=== PATIENT | female | born 1960 | race Caucasian/White ===

== ENCOUNTER 2022-01-24 09:34 | Outpatient (REF) | payer OTHER, SELFPAY ==
--- NOTE | ~2022-01-24 | XR_ITS ---
EXAMINATION: XR CERVICAL SPINE CLINICAL INFORMATION: M47.812 - Spondylosis without myelopathy or radiculopathy, cervical region COMPARISON: None TECHNIQUE: Cervical spine is imaged in 6 views. FINDINGS: Vertebral bodies are normal in height and there is no vertebral compression or destructive process or prevertebral soft tissue swelling. No focal disc narrowing or erosive change. No cervical rib. There are multilevel degenerative facet changes with facet joint narrowing and spurring. There is multilevel vertebral body spurring. Borderline 1 mm spondylolisthesis C5-C6. Oblique views show variable bilateral foraminal spurring C3-C5. XR/XR cervical spine min 6V IMPRESSION: 1. Multilevel degenerative facet changes with facet joint narrowing and spurring. 2. Variable bilateral foraminal spurring C3-C5. 3. Borderline spondylolisthesis C5-C6.
== END 2022-01-24 09:35 | disposition home or self-care (01) ==
LOC: HO.XRAY 09:34
PROVIDERS: PCP Internal Medicine; Visit Provider Nurse Practitioner Family
DX: M25.511 Pain in right shoulder (principal); M54.12 Radiculopathy, cervical region; M47.812 Spondylosis without myelopathy or radiculopathy, cervical region; Z87.828 Personal history of other (healed) physical injury and trauma
CPT/HCPCS: 72052; 99202

== ENCOUNTER 2022-03-21 05:50 | Outpatient (REF) | payer OTHER, SELFPAY ==
--- NOTE | ~2022-03-21 | FL_ITS ---
EXAMINATION: XR FLUOROSCOPY WITH IMAGES CLINICAL INFORMATION: M25.511 - Pain in right shoulder COMPARISON: None. TECHNIQUE: Fluoroscopy Supervised By: Dr. Royer Phelps. Fluoroscopy Time: 0.3 minutes. Cumulative Dose: 4.00 mGy. DAP: 1.09 Gycm2. Images: 2. FINDINGS: There is a spinal needle overlying the upper scapular just above the mid scapular spine with contrast horizontally oriented in the soft tissues. The other image shows spinal needle near surgical neck humerus with contrast in the soft tissues. No visible vascular communication. FL/FL guidance in treatment room IMPRESSION: Fluoroscopy for pain management procedures.
== END 2022-03-21 05:51 | disposition home or self-care (01) ==
LOC: CF 05:50
PROVIDERS: Visit Provider Anesthesiology
DX: M47.812 Spondylosis without myelopathy or radiculopathy, cervical region (principal); M54.12 Radiculopathy, cervical region; M25.511 Pain in right shoulder; Z87.828 Personal history of other (healed) physical injury and trauma
CPT/HCPCS: 64417; 64418; 77002; J2795

== ENCOUNTER → 2022-03-24 14:15 | Outpatient (BNVA) | payer OTHER, SELFPAY | PROVIDERS: PCP Internal Medicine; Visit Provider Nurse Practitioner Family | DX: M25.511 Pain in right shoulder (principal); M47.812 Spondylosis without myelopathy or radiculopathy, cervical region; Z98.890 Other specified postprocedural states | CPT/HCPCS: 99212 ==

== ENCOUNTER 2022-05-08 08:08 | Outpatient (REF) | payer OTHER, SELFPAY ==
--- NOTE | ~2022-05-08 | XR_ITS ---
EXAMINATION: XR SHOULDER, RIGHT CLINICAL INFORMATION: M25.511 - Pain in right shoulder COMPARISON: None TECHNIQUE: Right shoulder is imaged in 4 views. FINDINGS: No fracture or dislocation or destructive process. The glenohumeral joint appears normal. The acromioclavicular alignment is normal. There is a punctate calcification in region of distal superior rotator cuff as well as mild spurring greater tuberosity. XR/XR shoulder RT min 2V IMPRESSION: Punctate calcification in region of distal superior rotator cuff. Mild spurring greater tuberosity.
== END 2022-05-08 08:09 | disposition home or self-care (01) ==
LOC: HO.XRAY 08:08
PROVIDERS: PCP Internal Medicine; Visit Provider Nurse Practitioner Family
DX: M25.511 Pain in right shoulder (principal)
CPT/HCPCS: 73030; 99212

== ENCOUNTER 2022-12-08 13:16 | Outpatient (AMB) | payer OTHER, SELFPAY ==
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
[2022-12-08 13:24] VITALS: BP 138/72; PULSE 76; O2SAT 98; BMI 31.0
== END 2022-12-08 13:30 | disposition home or self-care (01) ==
PROVIDERS: PCP Internal Medicine; Visit Provider Nurse Practitioner Family
DX: M25.511 Pain in right shoulder (principal); M47.812 Spondylosis without myelopathy or radiculopathy, cervical region; M62.838 Other muscle spasm
CPT/HCPCS: 99214

== ENCOUNTER → 2022-12-08 13:16 | Outpatient (BNVA) | payer OTHER, SELFPAY | PROVIDERS: PCP Internal Medicine; Visit Provider Nurse Practitioner Family | DX: M25.511 Pain in right shoulder (principal); M47.812 Spondylosis without myelopathy or radiculopathy, cervical region; M62.838 Other muscle spasm | CPT/HCPCS: 99212 ==

== ENCOUNTER 2023-01-08 08:29 | Outpatient (AMB) | payer OTHER, SELFPAY ==
[2023-01-08 09:27] VITALS: BP 136/85; PULSE 78; RESP 12; BMI 30.8
--- NOTE | 2023-01-08 09:27 | MHC.OFFVIS ---
Intake Vital Signs 01/08/23 09:27 Height 5 ft 3 in Weight 174 lb BMI 30.8 BP 136/85 Blood Pressure Location Lt brachial Position Sitting Respiration 12 Pulse 78 Pulse Source Pulse Oximeter Intake Visit Reasons: R Dx suprascap/axillary/pectoral NB /Lvm Allergies No Known Allergies Allergy (Verified 12/08/22 13:25) HPI R Dx suprascap/axillary/pectoral NB /Lvm HPI Details 62-year-old female who presents today for a right diagnostic suprascapular, axillary nerve blocks. A certified service consultant was present during the visit. Denies any recent cough, cold, infection, fever or other significant changes in medical history since last office visit. [facility] Medical History DJD (degenerative joint disease) of knee Vitamin D deficiency Glaucoma Lung nodule Thyroid nodule Hematochezia Hyperlipidemia Hypertension H/O esophageal reflux Constipation Social History Patient Tobacco Use Status: Never used Tobacco Review of Systems Const All systems reviewed & are unremarkable except as noted in HPI and below Physical Exam Vital Signs: Last Vital Signs Pulse 78 01/08/23 09:27 Resp 12 01/08/23 09:27 BP 136/85 01/08/23 09:27 BMI result Body Mass Index 30.8 General: Appears afebrile. Alert and oriented. Mood and affect appropriate. Follows and participates in conversation appropriately. Respiratory effort is unlabored. Able to transition from sit to stand unassisted. Ambulates with bilaterally normal heel strike and toe off. Office Procedures Nerve Block Details: Right diagnostic suprascapular and axillary nerve blocks, US guided. After obtaining written consent, pre-procedure blood pressure and heart rate were stable and recorded in the nursing record. The patient was placed in the sitting position. The areas overlying the peripheral nerves were widely prepped with chloraprep, allowed to dry and sterilely draped. Using ultrasound, the appropriate landmarks were identified. An 80 mm 21 gauge echostim needle was advanced under ultrasound guidance to the suprascapular notch for the suprascapular nerve and then the quadrangular space for the axillary nerve. Aspiration was negative for heme and synovial fluid. 2 cc of bupivacaine 0.5% was injected around each targeted nerve. The needles were removed, skin cleansed and sterile bandage was applied. The patient tolerated the procedure well and no complications were encountered. Following the procedure, the patient's vital signs were stable. The patient was discharged home in good condition with post-procedural instructions. Time Out: Immediately prior to the procedure, the following was verbally confirmed that there is a signed consent form and that the correct patient, planned procedure, site and side are consistent with documentation and that necessary equipment and/or blood products are available prior to the start of the case. Complications: none EBL: <5 cc Note: An ultrasound image of the injection was taken and stored in the permanent record. 70478 - Axillary 24634 - Suprascapular Procedure code (CPT) selection complete Results Reviewed Results Reviewed: No imaging is available for review. Assessment & Plan Assessment & Plan (1) Right shoulder pain: Code(s): M25.511 - Pain in right shoulder Plan Patient is status post right diagnostic suprascapular and axillary nerve blocks, ultrasound guided. Patient tolerated procedure well and was discharged home in stable condition with discharge instructions. All questions were answered. We will follow-up in two weeks via telephone or in clinic to assess response to therapy. A follow-up appointment was made during today's visit. Scribed for Dr. Lim by Phillip Taylor, medical officer, on 01/08/2023. I, Dr. Lim, have personally reviewed and agree with the information entered by the scribe. Coding Level of Care Code Procedure Only Diagnoses Right shoulder pain M25.511 CPT Codes Nerve Block - Nerve Block 3: 90367 - Axillary ([id number]) Nerve Block - Nerve Block 4: 16908 - Suprascapular ([id number])
== END 2023-01-08 09:39 | disposition home or self-care (01) ==
PROVIDERS: PCP Internal Medicine; Visit Provider Internal Medicine
DX: M25.511 Pain in right shoulder (principal)
CPT/HCPCS: 64417; 64418; 76942

== ENCOUNTER → 2023-01-08 08:29 | Outpatient (BNVA) | payer OTHER, SELFPAY | PROVIDERS: PCP Internal Medicine; Visit Provider Internal Medicine | DX: M25.511 Pain in right shoulder (principal) | CPT/HCPCS: 64417; 64418 ==

== ENCOUNTER 2023-01-11 13:20 | Outpatient (AMB) | payer OTHER, SELFPAY ==
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
[2023-01-11 13:33] VITALS: BP 132/71; PULSE 71; O2SAT 98; BMI 30.3
== END 2023-01-11 13:45 | disposition home or self-care (01) ==
PROVIDERS: PCP Internal Medicine; Visit Provider Nurse Practitioner Family
DX: M25.511 Pain in right shoulder (principal); M19.011 Primary osteoarthritis, right shoulder; M62.838 Other muscle spasm
CPT/HCPCS: 99213

== ENCOUNTER → 2023-01-11 13:20 | Outpatient (BNVA) | payer OTHER, SELFPAY | PROVIDERS: PCP Internal Medicine; Visit Provider Nurse Practitioner Family | DX: M25.511 Pain in right shoulder (principal); M19.011 Primary osteoarthritis, right shoulder; M62.838 Other muscle spasm | CPT/HCPCS: 99212 ==

== ENCOUNTER → 2024-06-19 09:05 | Outpatient (REF) | payer OTHER, SELFPAY ==
--- NOTE | ~2024-06-19 | NM_ITS ---
CLINICAL HISTORY: THYROTOXICOSIS Thyroid scintigraphy Comparison: None Findings: 0.288 mCi of I-123 was administered 9:30 a.m. on 06/19/24. 10 mCi Tc-99m pertechnetate was administered 11:22 a.m. on 06/20/24. At 4 hours radiotracer uptake was 11.68%, which is within normal limits (6-18%). At 24 hours radiotracer uptake was 31.21%, which is within normal limits (10-35%). Uptake on the I-123 scan is heterogeneous and greater on the left. Uptake on the Tc-99m pertechnetate scan was also heterogeneous with a similar pattern; greater uptake on the left in the mid to upper pole of the thyroid. There is also focal uptake in the right lobe of the thyroid at the lower pole which is better seen on the Tc-99m pertechnetate scan. Note is made of elevated free T4 (1.21 ng/mL) and slightly decreased TSH (0.29 miu/mL) which was drawn on 05/01/24. Impression: Heterogeneous radiotracer uptake. Clinical history of thyrotoxicosis with reported abnormal blood work, weight loss and fatigue. % Uptake is within normal limits. Heterogeneous uptake could be secondary to functional status of thyroid nodules; thyroid nodules can be further evaluated with a thyroid ultrasound. Toxic multinodular goiter may also be considered, however is less likely due to uptake of radiotracer being within normal limits. This document has been electronically signed by: Irene Kc MD on 06/23/2024 17:37:40
--- OUTSIDE RECORDS SUMMARY | 2024-06-19 09:39 | XMS_ITS | Encounter Summary ---
Author Organization [employer] Address [address] [place] [address] Care Team Providers Care Certified Technician Name Role Phone Unavailable Primary Care Provider Unavailabl e Encounter Details Date Type Department Care Team (Latest Contact Info) Description 07/15/2018 Abstract [facility] Dental, Provider, DDS Social History Tobacco Use Types Packs/Day Years Used Date Smoking Tobacco: Never Assessed Comments Unknown Sex and Gender Information Value Date Recorded Sex Assigned at Female 01/09/2022 10:20 AM EDT Legal Sex Female 10:20 AM EDT Gender Identity Female 01/09/2022 10:20 AM EDT Sexual Orientation Straight 01/09/2022 10 :20 AM EDT documented as of this encounter Plan of Treatment Upcoming Encounters Date Type Department Care Team (Late st Contact Info) Description 11/24/2024 8:00 AM EDT Office Visit [facility] [address] [place] [address] Jeffry Stanton documented as of this encounter Visit Diagnoses Not on filedocumented in this encounter
--- OUTSIDE RECORDS SUMMARY | 2024-06-19 09:39 | XMS_ITS | Encounter Summary ---
Author Organization [facility] Address [address] [place] [address] Care Team Providers Care Courseware Developer Name Role Phone Nan Rubio MD Primary Care Provider [phone] Reason for Visit * Reason Onset Date Comments test 05/30/2024 Encounter Details Date Type Department Care Team ([facility] Contact Info) Description 05/30/2024 Telephone [facility] [address] [place], [place] [phone] Malgorzata Singleton PA [address] [place], [place] test Social History Tobacco Use Types Packs/Day Years Used Date Smoking Tobacco: Never Smokeless Tobacco: Never Alcohol Use Standard Drinks/Week Comments No 0 (1 standard drink = 0.6 oz pur e alcohol) Comments No Sex and Gender Information Value Date Recorded Sex Assigned at Female 02/06/2024 10:56 AM EST Legal Sex Female 4:36 AM EST Gender Identity Female 02/06/2024 10:56 AM EST Sexual Orientation Straight 02/06/2024 10 :56 AM EST Occupation Industry Job Start Date Job End Date [employer] WORK[employer] Not on file Not on file Not on file documented as of this encounter Progress Notes * Sally Lawson RN - 06/02/2024 2:44 PM EDT Called and spoke with patient Message from provider read Pt verbalizes understanding Uptake scan scheduled for 06/19/24 * NICKI Gerard - 06/02/2024 11:11 AM EDT Please have patient reach out to ordering provider/PCP regarding potential side effects. Dizziness is not a common side effect of Fosamax. I have seen patient in the past for hyperthyroidism. Please remind her to complete thyroid uptake scan later this week. I believe is scheduled at [facility] on the . * Sally Lawson RN - 06/02/2024 9:23 AM EDT Called and spoke with patient Pt sts after taking Fosamax, she is dizzy last 2-3 days then resolves. This has been occurring x 2 months Denies n/v Denies room spinning Denies headaches Denies CP/SOB Pt is still able to go to work Please advise * Talya Muniz MA - 06/02/2024 9:03 AM EDT Called pt, pt will do that. She then mentioned that you prescribed her a medication, she didn't remember the name but she states she feels dizziness since she doesn't really eat in the morning. She wants to know what she should do. I let her know I will send the message over to the nurse, since I wasn't sure if she could take that med in the PM after she eats so she wont feel dizzy? * NICKI Gerard - 05/30/2024 3:21 PM EDT Please have patient either drop off results to our office or have them faxed over. * She Atkinson - 05/30/2024 2:03 PM EDT Patient just wanted to make Malgorzata aware that patient will be having her thyroid test done on 06/05/24 at [facility] documented in this encounter Plan of Treatment Upcoming Encounters Date Type Department Care Team (Late st Contact Info) Description 08/25/2024 8:30 AM EDT Office Visit Gastroenterology - [place] [address] [place] [phone] Tatum Stacy PA [address] [place] [address] 11/20/2024 9:30 AM EDT Office Visit Internal Medicine - [place] [address] [place] [phone] Nan Rubio MD [address] [place] [phone] documented as of this encounter Visit Diagnoses Not on filedocumented in this encounter Care Teams Courseware Developer Relationship Specialty Start Date End Date Nan Rubio MD [address] [place] [phone] PCP - General Internal Medicine 10/06/14 documented as of this encounter
--- OUTSIDE RECORDS SUMMARY | 2024-06-19 09:39 | XMS_ITS | Encounter Summary ---
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
--- OUTSIDE RECORDS SUMMARY | 2024-06-19 09:39 | XMS_ITS | Clinical Summary ---
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 3 Active lidocaine (LIDODERM) 5 % patch Place 1 Patch onto the skin every 24 hours. Apply for no more than 12 hours in any 24 hour period. 3 Active EPINEPHrine (EpiPen 2-Acosta) 0.3 mg/0.3 mL injection Inject 0.3 mg mL into the skin once as needed for Other (allergic reaction) for up to 1 dose. 1 Active valACYclovir (VALTREX) 1 gram tablet 4 Active calcium carbonate-vitam in D3 600 mg-10 mcg (400 unit) capsule Take 1 capsule by mouth 2 (two) times a day. 180 each 2 4 Active alendronate (Fosamax) 70 mg tablet Take 1 tablet (70 mg total) by mouth every 7 (seven) days. Take in the morning with a full glass of water, on an empty stomach, and do not take anything else by mouth or lie down for the next 30 min. 12 each 3 4 02/14/20 25 Active bisacodyL (DULCOLAX) 5 mg EC tablet Take 1 tablet (5 mg total) by mouth 2 (two) times a day if needed for constipation. 60 tablet 3 5 Active ketoconazole (NIZORAL) 2 % cream 5 Active lisinopril-hydr oCHLOROthiazide (PRINZIDE,ZESTO RETIC) 20-12.5 mg per tablet Take 1 tablet by mouth 1 (one) time each day. 90 tablet 3 5 Active atorvastatin (LIPITOR) 10 mg tablet Take 1 tablet (10 mg total) by mouth 1 (one) time each day. 90 tablet 3 5 Active omeprazole (PriLOSEC) [address] capsule Take 1 capsule (40 mg total) by mouth 1 (one) time each day. 30 capsule 1 5 Active linaCLOtide (Linzess) 145 mcg capsule Take 1 capsule (145 mcg total) by mouth 1 (one) time each day. 30 capsule 3 5 Active metoclopramide (REGLAN) 5 mg tablet Take 1 tablet (5 mg total) by mouth 3 (three) times a day before meals. 90 each 1 5 05/23/19 26 Active hydrocortisone (ANUSOL-HC) 2.5 % rectal cream Insert into the rectum 2 (two) times a day. 30 g 1 5 Active hydrocortisone (ANUSOL-HC) 2.5 % rectal cream Place 1 Inch rectally 2 times daily. 0 05/23/19 25 Discontinu ed(Reorder ) Active Problems Problem Noted Date Diagnosed Date Low TSH level 05/14/2024 Language barrier 02/01/2024 Pelvic relaxation 02/01/2024 Constipation 10/29/2017 Esophageal reflux 10/29/2017 Internal hemorrhoids with complication 8 Hypertension 04/10/2017 Vitamin B12 deficiency 04/10/2017 Hyperlipidemia 12/30/2016 Hematochezia 10/27/2016 Thyroid nodule 07/22/2015 Lung nodule 12/03/2014 Glaucoma 12/01/2014 Vitamin D deficiency 09/09/2014 Seasonal allergies 2013 DJD (degenerative joint disease) of knee 014 Breast asymmetry in female 06/23/2013 Encounters Date Type Department Care Team Description 06/19/2024 [facility] [place] [phone] Malgorzata Singleton PA Labs Only 05/30/2024 Telephone Endocrinology [address] [phone] Malgorzata Singleton PA test 05/22/2024 10:50 AM EDT Office Visit Gastroenterology [facility] [address] [phone] Tatum Stacy PA Chronic constipation (Primary Dx); Gastroesophageal reflux disease, unspecified whether esophagitis present; Gastroparesis 05/22/2024 Telephone Gastroenterology [address] [phone] Tatum Stacy PA PRIOR AUTHORIZATION 05/14/2024 8:30 AM EST Office Visit Internal Medicine - [address] [phone] Nan Rubio MD Mixed hyperlipidemia (Primary Dx); Primary hypertension; Low TSH level; Vitamin B12 deficiency 05/05/2024 Telephone Endocrinology - [address] [phone] Talya Muniz MA thyroid uptake not covered @[facility] 05/01/2024 8:40 AM EST Office Visit Endocrinology [address] [phone] Malgorzata Singleton PA Thyroid nodule (Primary Dx); Subclinical hyperthyroidism 04/07/2024 8:59 AM EST - 04/07/2024 11:59 PM EST Hospital Encounter Radiology Department - [address] [phone] Nontoxic single thyroid nodule Discharge Disposition: Home or Self Care 03/21/2024 2:38 PM EST - 03/21/2024 11:59 PM EST Hospital Encounter Radiology Department - [address] [phone] Encounter for screening mammogram for breast cancer Discharge Disposition: Home or Self Care 03/21/2024 Telephone Gastroenterology [facility] [address] [place] [phone] Tatum Stacy PA Refill Request from Last 3 Months Immunizations Name Administration Dates Next Due Influenza Quadravalent, MDCK , 0.5ml, preservative free (Flucelvax) 6mo and older 11/18/2018 Influenza trivalent, with pr eservative (Fluzone; Afluria) 6mo and older 12/12/2017 PPD Test 07/09/2018,04/12/2017,12/29/2014 Surgical History Surgery Date Site/Laterality Comments EYE SURGERY 2018 PROCEDURE: HISTORICAL EYE SURGERY; COMMENT: cataract OTHER SURGICAL HISTORY 03/12/2019 - 03/11/2020 hemorrhoidectomy Medical History Medical History Date Comments Breast asymmetry in female 06/23/2013 DX:Br east asymmetry in female Constipation 10/29/2017 DX:Constipation DJD (degenerative joint dise ase) of knee 10/21/2013 DX:DJD (degenerative joint d isease) of knee Esophageal reflux 10/29/2017 DX:Esophageal reflux Glaucoma 12/01/2014 DX:Glaucoma Hematochezia 10/27/2016 DX:Hematochezia Hyperlipidemia 12/30/2016 DX:Hyperlipidemi a Hypertension 04/10/2017 DX:Hypertension Internal hemorrhoids with complication 10/29/2017 DX:Internal hemorrhoids with complication Lung nodule 12/03/2014 DX:Lung nodule Seasonal allergies 2013 DX:Seasonal a llergies Thyroid nodule 07/22/2015 DX:Thyroid nodul e Vitamin B12 deficiency 04/10/2017 DX:Vitami n B12 deficiency Vitamin D deficiency 09/09/2014 DX:Vitamin D deficiency Weight loss, unintentional 11/23/2016 DX:We ight loss, unintentional Hemorrhoids Family History Medical History Relation Name Comments Dementia Father Diabetes Mother Hypertension Mother Breast cancer Neg Hx Ovarian cancer Neg Hx Relation Name Status Comments Brother 1 Alive Brother 2 Alive Brother 3 Alive Brother 4 Father Mother Sister 1 Alive Sister 2 Alive Sister 3 Alive Social History Tobacco Use Types Packs/Day Years Used Date Smoking Tobacco: Never Smokeless Tobacco: Never Tobacco Cessation:Counseling Given: Not Answered Alcohol Use Standard Drinks/Week Comments No 0 (1 standard drink = 0.6 oz pur e alcohol) Comments No Sex and Gender Information Value Date Recorded Sex Assigned at Female 02/06/2024 10:56 AM EST Legal Sex Female 4:36 AM EST Gender Identity Female 02/06/2024 10:56 AM EST Sexual Orientation Straight 02/06/2024 10 :56 AM EST 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 Not on file Not on file Obstetrics History Para Term AB IAB SAB Ectopic Multiple Livin g Live Births 6 6 3 3 3 Date Outcome GA Total Labor Labor/2nd/3rd Weight Sex Type Anes PTL Nkechi A1 A5 Name Clin Term Term Term 1982 Para M Vag-S pont Living 1983 Para F Vag-S pont Living 1985 Para F Vag-S pont Living Last Filed Vital Signs Vital Sign Reading Time Taken Comments Blood Pressure 104/64 05/22/2024 10:13 AM EDT Pulse 67 05/14/2024 8:48 AM EST Temperature 36.3 ??C (97.3 ??F) 05/14/2024 8:48 AM ES T Respiratory Rate - - Oxygen Saturation 98% 05/14/2024 8:48 AM EST Inhaled Oxygen Concentration - - Weight 73.9 kg (163 lb) 05/22/2024 10:13 AM EDT Height 160 cm (5' 3 ) 05/22/2024 10:13 AM EDT Body Mass Index 28.87 05/22/2024 10:13 AM EDT Plan of Treatment Upcoming Encounters Date Type Department Care Team (Late st Contact Info) Description 08/25/2024 8:30 AM EDT Office Visit Gastroenterology - [place] 175 [facility] [address] [facility] [address] [place] [phone] Tatum Stacy PA [address] [facility] [address] [place] [place] [phone] 11/20/2024 9:30 AM EDT Office Visit Internal Medicine - [place] [address] [facility] [address] [place] [phone] Nan Rubio MD 175 [facility] 200 [place] [phone] Health Maintenance Due Date Last Done Comments Pneumococcal Vaccine: 50+ Years (1 of 1 - PCV) 2010 Depression Screening 02/18/2022 HIV Screening 02/18/2022 Hepatitis C Screening 02/18/2022 Social Influencers of Health Screening 02/18/2022 COVID-19 Vaccine ( - season) 2023 03/16/2023, 01/25/2022, 01/06/2021, Additional history exists Hypertension/CHF/CAD Annual BMP Blood Test 11/14/2024 11/15/2023, 11/15/2023 DTaP,Tdap,and Td Vaccines (2 - Td or Tdap) 05/18/2025 05/19/2015 Breast Cancer Screening 03/21/2026 03/21/19, 08/30/2022, 08/26/2021, Additional history exists Cervical Cancer Screening: HPV 01/31/2029 02/01/2024, 05/20/2020 Cholesterol Screening (Lipid Panel) 05/14/2029 05/14/2024, 08/02/2022 Colorectal Cancer Screening: Colonoscopy 12/14/2031 12/13/2021 Osteoporosis Screening (Bone Density Screening) 02/11/2034 02/12/2024 RSV Immunization Adult Patients (1 - 1-dose 75+ series) 12/10/2035 Zoster Vaccines Completed 07/05/2021, 03/31/2021 Influenza Vaccine Completed 01/06/2024, , 11/22/2021, Additional history exists HIB Vaccines Aged Out No longer eligi ble based on patient's age to complete this topic HPV Vaccines Aged Out No longer eligi ble based on patient's age to complete this topic Hepatitis A Vaccines Aged Out No long er eligible based on patient's age to complete this topic Hepatitis B Vaccines Aged Out No long er eligible based on patient's age to complete this topic IPV Vaccines Aged Out No longer eligi ble based on patient's age to complete this topic MMR Vaccines Aged Out No longer eligi ble based on patient's age to complete this topic Meningococcal ACWY Vaccine Aged Out N o longer eligible based on patient's age to complete this topic Meningococcal B Vaccine Aged Out No l onger eligible based on patient's age to complete this topic Pneumococcal Vaccine: Pediatrics (0 to 5 Years) and At-Risk Patients (6 to 64 Years) Aged Out No longer eligible based on patient's age to complete this topic RSV Immunization Patients Under 20 months Aged Out No longer eligible based on patient's age to complete this topic Varicella Vaccines Aged Out No longer eligible based on patient's age to complete this topic Procedures Procedure Name Priority Date/Time Associated Diagnosis Comments CBC WITH AUTO DIFFERENTIAL Routine 05/14/2024 11:08 AM EST Mixed hyperlipidemia Primary hypertension LIPID PANEL WITH REFLEX TO DIRECT LDL Routine 05/14/2024 11:08 AM EST Mixed hyperlipidemia Primary hypertension CBC AND DIFFERENTIAL Routine 05/14/2024 11:08 AM EST Mixed hyperlipidemia Primary hypertension THYROID STIMULATING HORMONE Routine 05/01/2024 9:45 AM EST Thyroid nodule Subclinical hyperthyroidism THYROXINE FREE Routine 05/01/2024 9:45 AM EST Thyroid nodule Subclinical hyperthyroidism US HEAD NECK SOFT TISSUE Routine 04/07/2024 10:03 AM EST Nontoxic single thyroid nodule MG MAMMO DIGITAL SCREENING W BRAN BILAT Routine 03/21/2024 3:02 PM EST Encounter for screening mammogram for breast cancer BD BONE DENSITY DXA AXIAL SKELETON Routine 02/12/2024 8:08 AM EST Encounter for well woman exam with routine gynecological exam Asymptomatic menopausal state HPV WITH REFLEX GENOTYPE Routine 02/01/2024 10:04 AM EST Encounter for well woman exam with routine gynecological exam Screening for cervical cancer ANNUAL BMP BLOOD TEST Routine 11/15/2023 COLONOSCOPY Routine 12/13/2021 from Last 3 Months or Most Recently Relevant to Health Maintenance Results * Lipid panel with reflex to direct LDL (05/14/2024 11:08 AM EST) Cholesterol 152 0 - 200 mg/dL LAB CHEMISTRY METHOD 05/14/2024 6:19 PM [facility] Triglycerides 89 0 - 150 mg/dL LAB CHEMISTRY METHOD 05/14/2024 6:19 PM [facility] HDL 45 >=40 mg/dL LAB CHEMISTRY METHOD 05/14/2024 6:19 PM [facility] LDL Calculated 89 0 - 100 mg/dL LAB CHEMISTRY METHOD 05/14/2024 6:19 PM [facility] VLDL Cholesterol Jose A 17.8 mg/dL LAB CHEMISTRY METHOD 05/14/2024 6:19 PM [facility] Non HDL Chol. (LDL+VLDL) 107 <145 mg/dL LAB CHEMISTRY METHOD 05/14/2024 6:19 PM [facility] Chol/HDL Ratio 3.4 0.0 - 4.4 LAB CHEMISTRY METHOD 05/14/2024 6:19 PM [facility] Blood Venous blood specimen / Unknown Venipuncture / Unknown 05/14/2024 11:08 AM EST 05/14/2024 12:21 PM EST us Nan Rubio MD LAB BLOOD ORDERABLES Final Res ult [facility] [address] [place] [address], * (ABNORMAL) CBC auto differential (05/14/2024 11:08 AM EST) WBC 6.2 4.8 - 10.8 K/mcL LAB HEMETOLOGY METHOD 05/14/2024 12:38 PM [facility] RBC 4.40 3.80 - 4.80 M/mcL LAB HEMETOLOGY METHOD 05/14/2024 12:38 PM [facility] Hemoglobin 13.0 11.5 - 16.0 g/dL LAB HEMETOLOGY METHOD 05/14/2024 12:38 PM [facility] Hematocrit 40.4 35.0 - 47.0 % LAB HEMETOLOGY METHOD 05/14/2024 12:38 PM [facility] MCV 91.8 79.0 - 98.0 FL LAB HEMETOLOGY METHOD 05/14/2024 12:38 PM [facility] MCH 29.5 27.0 - 32.0 pcg LAB HEMETOLOGY METHOD 05/14/2024 12:38 PM [facility] MCHC 32.2 32.0 - 37.0 g/dL LAB HEMETOLOGY METHOD 05/14/2024 12:38 PM [facility] RDW 12.6 11.0 - 15.0 % LAB HEMETOLOGY METHOD 05/14/2024 12:38 PM [facility] Platelets 247 130 - 400 K/mcL LAB HEMETOLOGY METHOD 05/14/2024 12:38 PM [facility] MPV 11.3(H) 7.0 - 11.0 FL LAB HEMETOLOGY METHOD 05/14/2024 12:38 PM [facility] NRBC 0.0 <1.0 % LAB HEMETOLOGY METHOD 05/14/2024 12:38 PM [facility] NRBC Absolute 0.00 <0.10 K/mcL LAB HEMETOLOGY METHOD 05/14/2024 12:38 PM [facility] Neutrophils Relative 54.8 % LAB HEMETOLOGY METHOD 05/14/2024 12:38 PM [facility] Lymphocytes Relative 32.0 % LAB HEMETOLOGY METHOD 05/14/2024 12:38 PM [facility] Monocytes Relative 9.1 % LAB HEMETOLOGY METHOD 05/14/2024 12:38 PM [facility] Eosinophils Relative 2.9 % LAB HEMETOLOGY METHOD 05/14/2024 12:38 PM [facility] Basophils Relative 1.0 % LAB HEMETOLOGY METHOD 05/14/2024 12:38 PM [facility] Immature Granulocytes Relative 0.2 % LAB HEMETOLOGY METHOD 05/14/2024 12:38 PM [facility] Neutrophils Absolute 3.38 1.50 - 7.00 K/mcL LAB HEMETOLOGY METHOD 05/14/2024 12:38 PM [facility] Lymphocytes Absolute 1.97 1.00 - 5.00 K/mcL LAB HEMETOLOGY METHOD 05/14/2024 12:38 PM [facility] Monocytes Absolute 0.56 0.20 - 1.00 K/mcL LAB HEMETOLOGY METHOD 05/14/2024 12:38 PM [facility] Eosinophils Absolute 0.18 0.00 - 0.50 K/mcL LAB HEMETOLOGY METHOD 05/14/2024 12:38 PM [facility] Basophils Absolute 0.06 0.00 - 0.20 K/mcL LAB HEMETOLOGY METHOD 05/14/2024 12:38 PM [facility] Immature Granulocytes Absolute 0.01 0.00 - 0.03 K/mcL LAB HEMETOLOGY METHOD 05/14/2024 12:38 PM [facility] Blood Venous blood specimen / Unknown Venipuncture / Unknown 05/14/2024 11:08 AM EST 05/14/2024 12:17 PM EST us Nan Rubio MD LAB BLOOD ORDERABLES Final Res ult [facility] [address] [place] [address], * (ABNORMAL) Thyroid stimulating hormone (05/01/2024 9:45 AM EST) TSH 0.29(L) 0.40 - 4.00 mcIU/mL LAB CHEMISTRY METHOD 05/01/2024 12:57 PM EST [facility] Blood Venous blood specimen / Unknown Venipuncture / Unknown 05/01/2024 9:45 AM EST 05/01/2024 9:45 AM EST us Malgorzata CACERES LAB BLOOD ORDERABLES Final Resul t Performing Organization Address [facility]/ZIP Co de Phone Number [facility] [address] [place] [address], [place] [phone] * Thyroxine free (05/01/2024 9:45 AM EST) Free T4 1.21 0.70 - 1.80 ng/dL LAB CHEMISTRY METHOD 05/01/2024 12:57 PM EST [facility] Blood Venous blood specimen / Unknown Venipuncture / Unknown 05/01/2024 9:45 AM EST 05/01/2024 9:45 AM EST us Malgorzata CACERES LAB BLOOD ORDERABLES Final Resul t Performing Organization Address [facility] de Phone Number [facility] [address] [place] [address], [place] [phone] * US Head Neck Soft Tissue (04/07/2024 10:03 AM EST) Anatomical Region Laterality Modality Head and Neck Ultrasound 04/07/2024 11:0 7 AM EST Narrative 04/07/2024 11:53 AM EST Thyroid ultrasound. History follow-up on thyroid nodules. Comparison with previous examination from 03/21/2023. Thyroid gland is heterogeneous in echotexture with normal flow on color Doppler examination. There are multiple bilateral thyroid nodules, largest nodules measured. Right thyroid lobe measures 3.4 x 1.8 x 1.8 cm. There is 0.7 x 0.5 x 0.8 cm nodule in the upper pole which has cystic and solid components. Previously 0.9 x 0.5 x 0.9 cm. There is predominantly cystic nodule in the midpole measuring 1.2 x 0.7 x 1.1 cm, previously 1.3 x 0.8 x 1.1 cm. There is solid circumscribed slightly hypoechoic nodule in the lower pole measuring 1 x 0.8 x 1 cm, previously 0.9 x 0.6 x 1 cm. Left thyroid lobe measures 0.9 x 1.9 x 2.4 cm. There is mixed echogenicity nodule in the upper pole measuring 1.5 x 1.2 x 0.9 cm, previously 1.7 x 1.1 x 1.5 cm. There is adjacent nodule in the upper pole with mixed echogenicity measuring 1.4 x 0.9 x 0.9 cm, previously 1.8 x 1.1 x 1.8 cm. There is a circumscribed solid nodule mostly isoechoic measuring 2 x 1.9 x 1.6 cm, previously 2.4 x 1.9 x 2 cm. There is mixed echogenicity circumscribed nodule in the lower pole measuring 1 x 0.9 x 1 cm, previously 1.2 x 0.8 x 1.2 cm. Isthmus measures 4 mm. CONCLUSIONS: Heterogeneous in echotexture multinodular thyroid gland. Individual nodules are stable or smaller than on previous examination. No new focal abnormalities are identified. -------- FINAL REPORT -------- Dictated By: Suni Jackson Dictated Date: 04/07/2024 11:07 ET Assigned Physician: Suni Jackson Reviewed and Electronically Signed By: Suni Jackson Signed Date: 04/07/2024 11:53 ET Workstation ID: [id number] Transcribed By: Self Edit Transcribed Date: 04/07/2024 11:07 ET Procedure Note Suni Jackson MD - 04/07/2024 Thyroid ultrasound. History follow-up on thyroid nodules. Comparison with previous examination from 03/21/2023. Thyroid gland is heterogeneous in echotexture with normal flow on colorDoppler examination. There are multiple bilateral thyroid nodules, largestnodules measured. Right thyroid lobe measures 3.4 x 1.8 x 1.8 cm. There is 0.7 x 0.5 x 0.8cm nodule in the upper pole which has cystic and solid components.Previously 0.9 x 0.5 x 0.9 cm. There is predominantly cystic nodule in themidpole measuring 1.2 x 0.7 x 1.1 cm, previously 1.3 x 0.8 x 1.1 cm. Thereis solid circumscribed slightly hypoechoic nodule in the lower polemeasuring 1 x 0.8 x 1 cm, previously 0.9 x 0.6 x 1 cm. Left thyroid lobe measures 0.9 x 1.9 x 2.4 cm. There is mixed echogenicitynodule in the upper pole measuring 1.5 x 1.2 x 0.9 cm, previously 1.7 x1.1 x 1.5 cm. There is adjacent nodule in the upper pole with mixedechogenicity measuring 1.4 x 0.9 x 0.9 cm, previously 1.8 x 1.1 x 1.8 cm.There is a circumscribed solid nodule mostly isoechoic measuring 2 x 1.9 x1.6 cm, previously 2.4 x 1.9 x 2 cm. There is mixed echogenicitycircumscribed nodule in the lower pole measuring 1 x 0.9 x 1 cm,previously 1.2 x 0.8 x 1.2 cm. Isthmus measures 4 mm. CONCLUSIONS: Heterogeneous in echotexture multinodular thyroid gland.Individual nodules are stable or smaller than on previous examination. Nonew focal abnormalities are identified. -------- FINAL REPORT -------- Dictated By: Suni Jackson Dictated Date: 04/07/2024 11:07 ET Assigned Physician: Suni Jackson Reviewed and Electronically Signed By: Suni Jackson Signed Date: 04/07/2024 11:53 ET Workstation ID: [id number] Transcribed By: Self Edit Transcribed Date: 04/07/2024 11:07 ET us Malgorzata CACERES IMG US PROCEDURES Final Result * MG Mammo Digital Screening w Bran bilat (03/21/2024 3:02 PM EST) Anatomical Region Laterality Modality Breast Bilateral Mammography 03/24/2024 5:38 PM EST Impressions 03/24/2024 6:05 PM EST No mammographic evidence for malignancy. BI-RADS CATEGORY: 1 - NEGATIVE RECOMMENDATION: Screening bilateral mammogram is recommended in 1 year. Screening bilateral mammogram is recommended in 1 year. -------- FINAL REPORT -------- Dictated By: Suni Jackson Dictated Date: 03/24/2024 17:38 ET Assigned Physician: Suni Jackson Reviewed and Electronically Signed By: Suni Jackson Signed Date: 03/24/2024 18:05 ET Workstation ID: [id number] Transcribed By: Self Edit Transcribed Date: 03/24/2024 17:38 ET Narrative 03/24/2024 6:05 PM EST EXAMINATION TYPE: MG MAMMO DIGITAL SCREENING W BRAN BILAT DATE OF EXAM ORDERED: 03/21/2024 2:51 PM COMPARISON: Prior mammograms, latest from 08/30/2022. REASON FOR STUDY: ??Breast cancer screen, avg risk, asymptomatic (Age => 40y) TECHNIQUE: Bilateral mediolateral oblique and craniocaudal views ??were obtained digitally with 3-D mammogram (digital breast tomosynthesis) with CAD. Computer- aided detection was utilized in evaluation of this examination ([employer]; iCAD). FINDINGS: The breast tissue distribution pattern is unchanged. There is no suspicious mass, suspicious calcifications or suspicious architectural distortion. BREAST DENSITY: B - There are scattered areas of fibroglandular density. Procedure Note Suni Jackson MD - 03/24/2024 EXAMINATION TYPE: MG MAMMO DIGITAL SCREENING W BRAN BILAT DATE OF EXAM ORDERED: 03/21/2024 2:51 PM COMPARISON: Prior mammograms, latest from 08/30/2022. REASON FOR STUDY: Breast cancer screen, avg risk, asymptomatic (Age =>40y) TECHNIQUE: Bilateral mediolateral oblique and craniocaudal views wereobtained digitally with 3-D mammogram (digital breast tomosynthesis) withCAD. Computer- aided detection was utilized in evaluation of thisexamination ([employer]; iCAD). FINDINGS: The breast tissue distribution pattern is unchanged. There is nosuspicious mass, suspicious calcifications or suspicious architecturaldistortion. BREAST DENSITY: B - There are scattered areas of fibroglandular density. IMPRESSION: No mammographic evidence for malignancy. BI-RADS CATEGORY: 1 - NEGATIVE RECOMMENDATION: Screening bilateral mammogram is recommended in 1 year. Screeningbilateral mammogram is recommended in 1 year. -------- FINAL REPORT -------- Dictated By: Suni Jackson Dictated Date: 03/24/2024 17:38 ET Assigned Physician: Snui Jackson Reviewed and Electronically Signed By: Suni Jackson Signed Date: 03/24/2024 18:05 ET Workstation ID: [id number] Transcribed By: Self Edit Transcribed Date: 03/24/2024 17:38 ET Nan Rubio MD IMG BI PROCEDURES Final Result * BD Bone Density DXA Axial Skeleton (02/12/2024 8:08 AM EST) Anatomical Region Laterality Modality Wrist, Hip, L-spine Bone Densito metry 02/12/2024 10:5 7 AM EST Impressions 02/12/2024 10:59 AM EST Osteoporosis. ? [id number] -------- FINAL REPORT -------- Dictated By: Gavi Heredia Dictated Date: 02/12/2024 10:57 ET Assigned Physician: Gavi Heredia Reviewed and Electronically Signed By: Gavi Heredia Signed Date: 02/12/2024 10:59 ET Workstation ID: [id number] Transcribed By: Self Edit Transcribed Date: 02/12/2024 10:57 ET Narrative 02/12/2024 10:59 AM EST History: Low estrogen state due to menopause. Vitamin D deficiency. On omeprazole. Comparison: A 2015 Findings: Bone densitometry is performed utilizing dual energy x-ray absorptiometry (DXA) in the [employer] unit. The lumbar spine and proximal femora are evaluated in the AP projection. The FRAX questionaire was completed. The results indicate osteoporosis, with a right femoral neck T-score of -2.6. The Z score is -1.5, indicating low bone mineral density for age. There have been statistically significant decreases in bone mineral density in the spine and both total femurs since the previous study. ??The detailed DEXA report will be mailed to the referring physician's office. DualFemur FRAX: 10-year Probability of Fracture: Major Osteoporotic 7.4 percent ??Hip 1.6 percent. Procedure Note Gavi Heredia MD - 02/12/2024 History: Low estrogen state due to menopause. Vitamin D deficiency. Onomeprazole. Comparison: A 2015 Findings: Bone densitometry is performed utilizing dual energy x-ray absorptiometry(DXA) in the [employer] unit. The lumbar spine and proximal femora areevaluated in the AP projection. The FRAX questionaire was completed. The results indicate osteoporosis, with a right femoral neck T-score of-2.6. The Z score is -1.5, indicating low bone mineral density for age. There have been statistically significant decreases in bone mineraldensity in the spine and both total femurs since the previous study. Thedetailed DEXA report will be mailed to the referring physician's office. DualFemur FRAX: 10-year Probability of Fracture: Major Osteoporotic 7.4percent Hip 1.6 percent. IMPRESSION: Osteoporosis. [id number] -------- FINAL REPORT -------- Dictated By: Gavi Heredia Dictated Date: 02/12/2024 10:57 ET Assigned Physician: Gavi Heredia Reviewed and Electronically Signed By: Gavi Heredia Signed Date: 02/12/2024 10:59 ET Workstation ID: [id number] Transcribed By: Self Edit Transcribed Date: 02/12/2024 10:57 ET Carmen Bradley CNM IM DXA PROCEDURES Final Resu lt * HPV with reflex genotype (02/01/2024 10:04 AM EST) HPV Negative Negative LAB MICROBIOLOGY METHOD 02/04/2024 1:24 PM EST [facility] Brushing/Spatula Cervix uteri structure / Unknown 02/01/2024 10:04 AM EST 02/04/2024 7:51 AM EST Carmen Bradley [facility] MOLECULAR DIAGNOSTICS ORD ERABLES Final Result [facility] [address] [place] [address], * Annual BMP Blood Test (11/15/2023) Annual BMP Blood Test abstracted Historical Provider HEALTH MAINTENANCE Final Result * Colonoscopy (12/13/2021) Colonoscopy no interpretation , abstracted Anatomical Region Laterality Modality Other Historical Provider HEALTH MAINTENANCE Final Result from Last 3 Months or Most Recently Relevant to Health Maintenance Insurance [facility] Care Teams Boring Machine Operator Vertical Relationship Specialty Start Date End Date Nan Rubio MD 175 [facility] [address] [place] [address] PCP - General Internal Medicine 10/06/14
--- OUTSIDE RECORDS SUMMARY | 2024-06-19 09:39 | XMS_ITS | Encounter Summary ---
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 Any questions please call [phone] [email or web address] need by 9:30am today documented in this encounter Plan of Treatment Upcoming Encounters Date Type Department Care Team (Late st Contact Info) Description 08/25/2024 8:30 AM EDT Office Visit Gastroenterology - [place] 175 [facility] [address] [phone] Tatum Stacy PA [address] [address] 11/20/2024 9:30 AM EDT Office Visit Internal Medicine - [place] [address] [phone] Nan Rubio MD [address] [phone] documented as of this encounter Visit Diagnoses Not on filedocumented in this encounter Care Teams Property Master Relationship Specialty Start Date End Date Nan Rubio MD [address] [phone] PCP - General Internal Medicine 10/06/14 documented as of this encounter
--- OUTSIDE RECORDS SUMMARY | 2024-06-19 09:39 | XMS_ITS | Encounter Summary ---
Author Organization [facility] Address [address] [place] [address] Care Team Providers Care Construction Management Assistant Name Role Phone Nan Rubio MD Primary Care Provider [phone] Reason for Visit * Reason Onset Date Comments PRIOR AUTHORIZATION 05/22/2024 Encounter Details Date Type Department Care Team (Late st Contact Info) Description 05/22/2024 Telephone Gastroenterology - [place] [address] [place] [phone] Tatum Stacy PA [address] [place] [address] [place] [address] PRIOR AUTHORIZATION Social History Tobacco Use Types Packs/Day Years [...] Industry Job Start Date Job End Date [employer] Not on file Not on file Not on file documented as of this encounter Progress Notes * Brittni Gifford [place] - 06/04/2024 11:34 AM EDT Prior authorization for the anusol was completed today on the phone with Joslyn orlando [facility] Dx code K59.09 chronic constipation Docs faxed today * Lisa Helms - 05/22/2024 12:00 PM EDT Prior Authorization for Medication-do not complete and send this encounter unless you have the fax from the pharmacy. Is this a Cover My Meds request: yes [id number] Name of Medication hydrocortisone (ANUSOL-HC) Dose of Medication 2.5 % rectal cream What is the RX # from the faxed refill? How does patient take this med? Insert into the rectum 2 (two) times a day. What Pharmacy did the fax come from: [facility] Pharmacy fax #: [phone]. documented in this encounter Plan of Treatment Upcoming Encounters Date Type Department Care Team (Late st Contact Info) Description 08/25/2024 8:30 AM EDT Office Visit Gastroenterology - [place] [address] [phone] Tatum Stacy PA [address] [address] 11/20/2024 9:30 AM EDT Office Visit Internal Medicine - [place] [address] [phone] Nan Rubio MD [address] [phone] documented as of this encounter Visit Diagnoses Not on filedocumented in this encounter Care Teams Construction Management Assistant Relationship Specialty Start Date End Date Nan Rubio MD [address] [phone] PCP - General Internal Medicine 10/06/14 documented as of this encounter
--- OUTSIDE RECORDS SUMMARY | 2024-06-19 09:39 | XMS_ITS | Encounter Summary ---
Author Organization [employer] Address [address] [facility] [address] [place] [address] Care Team Providers Care All Source Intelligence Technician Name Role Phone Unavailable Primary Care Provider Unavailabl e Encounter Details Date Type Department Care Team (Latest Contact Info) Description 06/21/2020 Abstract [facility] CONVERSIONS Dental, Provider, DDS Social History Tobacco [...] Description 11/24/2024 8:00 AM EDT Office Visit [facility]ULT [facility] [address] [facility] [place] [address] Jeffry Stanton documented as of this encounter Visit Diagnoses Not on filedocumented in this encounter
--- OUTSIDE RECORDS SUMMARY | 2024-06-19 09:39 | XMS_ITS | Clinical Summary ---
Author Organization [employer] Address [address] [facility] [address] [place] [address] Care Team Providers Care Dry Color Mixer Name Role Phone Unavailable Primary Care Provider Unavailabl e Allergies No known active allergies Medications ibuprofen 400 MG tablet 08/27/2009 Active acetaminophen (Tylenol) 250 mg split tablet take 1 tablet (500MG) by oral route every 6 hours as needed 06/18/2013 Active atorvastatin (Lipitor) 10 MG tablet Take 1 tablet by mouth in the morning. Active cetirizine (KLS Aller-Angi) 10 MG tablet Take 1 tablet by mouth at bed time. Active Cyanocobalamin (B-12) 5000 MCG sublingual tablet Active ibuprofen 800 MG tablet Take 1 tablet by mouth every 8 (eight) hours. 10/16/2018 Active lisinopril 20 MG tablet Take 1 tablet by mouth at bed time. Active lisinopril-hydr oCHLOROthiazide 20-25 MG tablet Take 1 tablet by mouth in the morning. Active metoprolol tartrate (Lopressor) 50 MG tablet 08/27/2009 Active omeprazole OTC (PriLOSEC OTC) 20 MG EC tablet Acti ve Bisacodyl EC 5 MG EC tablet Take 5 mg by mouth if needed in the morning and at bedtime for constipation. 03/28/2023 Active omeprazole (PriLOSEC) [address] capsule Take 40 mg by mouth in the morning. 05/03/2023 Active alendronate (Fosamax) 70 MG tablet TAKE 1 TABLET BY MOUTH ONCE A WEEK IN THE MORNING WITH A FULL GLASS OF WATER, ON AN EMPTY STOMACH, AND DO NOT TAKE ANYTHING ELSE BY MOUTH OR LIE DOWN FOR THE NEXT 30 MINUTES. REMAIN UPRIGHT Active Encounters Date Type Department Care Team Description 05/20/2024 8:00 AM EDT Office Visit [facility] ADULT DENTAL [address] [place] [address] Jeffry Stanton Dental calculus (Primary Dx); Partial edentulism, class III from Last 3 Months Social History Tobacco Use Types Packs/Day Years Used Date Smoking Tobacco: Never Passive Smoke Exposure: Never Smokeless Tobacco: Never Tobacco Cessation:Counseling Given: Not Answered Alcohol Use Standard Drinks/Week Comments Never 0 (1 standard drink = 0.6 oz pur e alcohol) Comments Unknown Sex and Gender Information Value Date Recorded Sex Assigned at Female 01/09/2022 10:20 AM EDT Legal Sex Female 10:20 AM EDT Gender Identity Female 01/09/2022 10:20 AM EDT Sexual Orientation Straight 01/09/2022 10 :20 AM EDT Last Filed Vital Signs Vital Sign Reading Time Taken Comments Blood Pressure 106/62 05/20/2024 8:08 AM EDT Pulse 68 05/20/2024 8:08 AM EDT Temperature - - Respiratory Rate - - Oxygen Saturation - - Inhaled Oxygen Concentration - - Weight - - Height - - Body Mass Index - - Plan of Treatment Upcoming Encounters Date Type Department Care Team (Late st Contact Info) Description 11/24/2024 8:00 AM EDT Office Visit [facility] ADULT DENTAL [address] [place] [address] Jeffry Stanton Health Maintenance Due Date Last Done Comments CT Colonography 1960 Colonoscopy 1960 Colorectal Cancer Screening 1960 Depression Screening 1960 FIT DNA/Cologuard 1960 FIT 1960 FOBT 1960 HIV Screening 1960 Lipid Panel 1960 SDOH Screening 1960 Sigmoidoscopy 1960 Alcohol/Substance Use Screening 1972 Hepatitis C Screening 1978 Pap Smear 1981 Cervical Cancer Screening 1990 HPV/Cotest 1990 Pneumococcal Vaccine: 50+ Years (1 of 1 - PCV) 2010 COVID-19 Vaccine (2023- season) 2023 03/16/2023, 01/25/2022, 01/06/2021, Additional history exists Dental Oral Exam 11/21/2024 05/20/2024, , 06/21/2020, Additional history exists Dental Prophylaxis 11/21/2024 05/20/2024, 0 05/29/2023, 07/28/2022, Additional history exists DTaP/Tdap/Td Vaccines (2 - Td or Tdap) 05/18/2025 05/19/2015 Tobacco Screening 05/20/2025 05/20/2024 Dental X-Ray: Bitewings 05/21/2025 05/21/19 25, 10/04/2023, 05/29/2023, Additional history exists Mammogram 03/21/2026 03/21/2024, 03/21/2024 Dental X-Ray: Full Mouth 05/29/2026 024, 01/14/2018, 11/20/2014 RSV Patients and Patients Aged 60 years or older (1 - 1-dose 75+ series) 12/10/2035 Zoster [...] patient's age to complete this topic Meningococcal Vaccine Aged Out No matthew gabriella eligible based on patient's age to complete this topic RSV under 20 months Aged Out No longe r eligible based on patient's age to complete this topic Rotavirus Vaccines Aged Out No longer eligible based on patient's age to complete this topic Procedures Procedure Name Priority Date/Time Associated Diagnosis Comments PERIODIC ORAL EVALUATION - ESTABLISHED PATIENT Routine 05/20/2024 8:00 AM EDT Partial edentulism, class III INTRAORAL - PERIAPICAL EACH ADDITIONAL RADIOGRAPHIC IMAGE Routine 05/20/2024 8:00 AM EDT Partial edentulism, class III INTRAORAL - PERIAPICAL EACH ADDITIONAL RADIOGRAPHIC IMAGE Routine 05/20/2024 8:00 AM EDT Partial edentulism, class III INTRAORAL - PERIAPICAL FIRST RADIOGRAPHIC IMAGE Routine 05/20/2024 8:00 AM EDT Partial edentulism, class III ORAL HYGIENE INSTRUCTIONS Routine 05/20/2024 8:00 AM EDT Partial edentulism, class III BITEWINGS - 4 RADIOGRAPHIC IMAGES Routine 05/20/2024 8:00 AM EDT Partial edentulism, class III Full PROPHYLAXIS - ADULT Routine 025 8:00 AM EDT Partial edentulism, class III CASE PRESENTATION, DETAILED AND EXTENSIVE TREATMENT PLANNING Routine 05/20/2024 8:00 AM EDT Partial edentulism, class III INTRAORAL - COMPLETE SERIES OF RADIOGRAPHIC IMAGES Routine 05/29/2023 8:00 AM EDT from Last 3 Months or Most Recently Relevant to Health Maintenance Insurance [facility] [place] [id number]
== END ==
LOC: HO.NUCMED 09:05
PROVIDERS: PCP Internal Medicine; Visit Provider Physician Assistant Medical
DX: E03.8 Other specified hypothyroidism (principal); E04.1 Nontoxic single thyroid nodule; E05.90 Thyrotoxicosis, unspecified without thyrotoxic crisis or storm
CPT/HCPCS: 78014; A9512; A9516

== ENCOUNTER → 2024-06-19 09:15 | Outpatient (BNV) | payer OTHER, SELFPAY | PROVIDERS: PCP Internal Medicine; Visit Provider Radiology Diagnostic Radiology | DX: E05.90 Thyrotoxicosis, unspecified without thyrotoxic crisis or storm (principal) | CPT/HCPCS: 78014 ==